=== PATIENT | female | born 1950 | race African-American/Black ===

== ENCOUNTER 2017-05-07 11:26 | Emergency (ER) | payer OTHER ==
[~2017-05-07] VITALS: Ht 154.9 cm; Wt 78.9 kg
[2017-05-07 11:51] VITALS: BP 159/89
--- NOTE | 2017-05-07 11:51 | NUR ---
PT AMBULATED TO BED 7
--- NOTE | 2017-05-07 11:52 | NUR ---
PATIENT PRESENTS TO ED WITH ABDOMINAL PAIN RADIATES TO BACK X 2 WKS. . PT STATES HAD CONSTIPATED 2 WKS & HAD LAST BM ON SATURDAY. PT STS PAIN LEFT UPPER FLANK & RADIATES TO UPPER CHEST AT THIS TIME. DENIES N/V/D; SKIN IS PINK/WARM/DRY; AAOX4 WITH EVEN AND STEADY GAIT; LUNGS CLEAR BL; HR EVEN AND REGULAR; PT DENIES ANY FEVER, SOB, OR COUGH AT THIS TIME; PATIENT STATES PAIN OF 10/10 AT THIS TIME; VSS; PATIENT POSITIONED FOR COMFORT; HOB ELEVATED; BEDRAILS UP X2; BED DOWN. ER MD MADE AWARE OF PT STATUS.
[2017-05-07] MEDS ORDERED: METF500T PO (11:54)
[2017-05-07] MEDS ORDERED: NACL 0.9% 1,000 ML IV SCH (12:21)
[2017-05-07] MEDS ORDERED: INSULIN HUMAN REGULAR 100 UNITS/ML 10 ML VIAL IVP ONE (12:25)
--- NOTE | 2017-05-07 12:30 | NUR ---
PT TO CT VIA WHEEL CHAIR
--- NOTE | 2017-05-07 12:39 | NUR ---
PT RETURNED FROM CT---LAB AT BEDSIDE
--- NOTE | 2017-05-07 12:44 | NUR ---
LAB AT BEDSIDE
[2017-05-07 12:51] LABS: HEMOGLOBIN 12.5 g/dL (12.0-16.0); MEAN CORPUSCULAR HEMOGLOBIN 30 pg (27-31); MEAN CORPUSCULAR HGB CONC 33 g/dL (33-37); MEAN CORPUSCULAR VOLUME 91 fL (80-94); PLATELET COUNT (AUTO) 309 K/uL (140-450); RED BLOOD CELL COUNT(AUTO) 4.17 MIL/uL (4.20-5.40); RED CELL DISTRIBUTION WIDTH 12.7 % (11.6-13.7); WHITE BLOOD COUNT (AUTO) 4.4 K/uL (4.8-10.8)
[2017-05-07 12:59] LABS: ANION GAP 13.2 (8-16); CREATININE 0.9 mg/dL (0.6-1.3); POTASSIUM 4.2 mmol/L (3.5-5.1)
[2017-05-07 13:02] LABS: LYMPHOCYTES % (MANUAL) 56 % (20-46); MONOCYTES % (MANUAL) 8 % (5-12)
[2017-05-07 13:05] LABS: ALBUMIN 3.8 g/dL (3.4-5.0); TOTAL BILIRUBIN 0.3 mg/dL (0.0-1.0)
--- NOTE | 2017-05-07 14:15 | NUR ---
Patient appears to be resting comfortably in bed. Vital Signs within normal limits. Respirations even and unlabored.WILL CONTINUE TO MONITOR.
[2017-05-07 15:08] VITALS: BP 144/75
--- NOTE | 2017-05-07 15:08 | NUR ---
Patient discharged with v/s stable. Written and verbal after care instructions given and explained. Patient alert, oriented and verbalized understanding of instructions. Ambulatory with steady gait. All questions addressed prior to discharge. ID band removed. Patient advised to follow up with PMD. Rx of DULCOLAX given. Patient educated on indication of medication including possible reaction and side effects. Opportunity to ask questions provided and answered.
[2017-05-07 15:19] LABS: APPEARANCE,URINE HAZY (CLEAR); BILIRUBIN,URINE NEGATIVE (NEGATIVE); BLOOD, URINE 1+ (NEGATIVE); COLOR,URINE YELLOW (YELLOW); LEUKOCYTE ESTERASE ,URINE 2+ (NEGATIVE); NITRITE, URINE POSITIVE (NEGATIVE); PH,URINE 5.5 (5.0-9.0); UGLUCOSE 3+ (NEGATIVE)
[2017-05-07 15:25] LABS: WBC,URINE 60-80 /HPF (0-5)
--- NOTE | 2017-05-09 13:15 | NUR ---
RECEIVED POSITIVE ESCHERICHIA COLI URINE CULTURE FOR PT. SPOKE WITH ER MD DR. SIMONS ABOUT RESULTS. PER ER MD DR. SIMONS, ORDERED LEVAQUIN 500 MG TAB ONCE A DAY FOR 10 DAYS. SPOKE WITH PT REGARDING RESULTS AND ER MD DR. SIMONS ORDER. PT STATES WOULD LIKE PRESCRIPTION CALLED INTO [facility] ON [address].
--- NOTE | 2017-05-09 13:20 | NUR ---
PER PT'S REQUEST, SPOKE WITH KRISTIE AT [facility] ON [address]; CALLED IN ER MD DR. SIMONS'S VERBAL ORDER LEVAQUIN 500 MG ONCE A DAY FOR 10 DAYS.
== END 2017-05-07 15:08 | disposition home or self-care (01) ==
LOC: MED 11:26
DX: K59.00 Constipation, unspecified (principal); E11.65 Type 2 diabetes mellitus with hyperglycemia; Z90.710 Acquired absence of both cervix and uterus
CPT/HCPCS: 36415; 74176; 80053; 81001; 81025; 82150; 82948; 83605; 83690; 85025; 86677; 87077; 87086; 87186; 96361; 96374; 99285; J1815; J7030

== ENCOUNTER 2019-08-16 11:59 | Emergency (ER) | payer OTHER ==
[~2019-08-16] VITALS: Ht 154.9 cm; Wt 74.8 kg
[~2019-08-16 11:59] MED LIST: METF500T PO
[2019-08-16 12:06] VITALS: BP 151/82
[2019-08-16] MEDS ORDERED: ALBU3SOL28 IH (12:13)
[2019-08-16] MEDS ORDERED: MAG355OR21 PO (12:13)
[2019-08-16] MEDS ORDERED: METH4TAB1 PO (12:13)
[2019-08-16] MEDS ORDERED: LEVO750T2 PO (12:13)
[2019-08-16] MEDS ORDERED: OMEP20TC12 PO (12:13)
[2019-08-16] MEDS ORDERED: LISI10TA11 PO (12:13)
--- NOTE | 2019-08-16 12:14 | NUR ---
Pt placed in bed 10.
--- NOTE | 2019-08-16 12:23 | NUR ---
C/O DRY COUGH, EPIGASTRIC PAIN, THROAT DISCOMFORT. DX WITH PNA AND GERD ON 08/12/19 AT [facility]RGENT [facility]ARE. WAS GIVEN ANTACID AND OMEPRAZOLE FOR GERD--PT STATES IT HAS BEEN HELPING W THE PAIN. PAIN NOW IS MILD. EPIGASTRIC PAIN WORSE AFTER FOOD--STATES FEELS LIKE A "HOT FEELING INSIDE". DENIES FEVER, N/V. HX- HTN, DM
--- NOTE | 2019-08-16 12:25 | NUR ---
DR. SWIFT EVALUATING PT AT BEDSIDE
--- NOTE | 2019-08-16 13:16 | NUR ---
PT RETURNED FROM XRAY
[2019-08-16 14:10] VITALS: BP 151/82
--- NOTE | 2019-08-16 14:10 | NUR ---
Patient discharged with v/s stable. Written and verbal after care instructions given and explained. Patient verbalized understanding. Ambulatory with steady gait. All questions addressed prior to discharge. Advised to follow up with PMD.
== END 2019-08-16 14:10 | disposition home or self-care (01) ==
LOC: MED 11:59
DX: R10.13 Epigastric pain (principal); E11.9 Type 2 diabetes mellitus without complications; I10 Essential (primary) hypertension; Z79.899 Other long term (current) drug therapy; Z79.51 Long term (current) use of inhaled steroids; Z79.2 Long term (current) use of antibiotics
CPT/HCPCS: 74022; 99283